=== PATIENT | male | born 1950 | race Caucasian/White ===

== ENCOUNTER 2016-12-25 22:05 | Emergency (ER) | payer MEDICARE, OTHER ==
[~2016-12-25] VITALS: Ht 177.8 cm; Wt 77.0 kg
[~2016-12-25 22:05] MED LIST: LIB5 PO
[2016-12-25 22:11] VITALS: BP 130/87
== END 2016-12-25 22:27 | disposition left against medical advice (07) ==
LOC: EMS 22:07
DX: M79.644 Pain in right finger(s) (principal); Z53.21 Procedure and treatment not carried out due to patient leaving prior to being seen by health care provider